=== PATIENT | male | born 1980 | race Two or more races ===

== ENCOUNTER 2023-11-30 12:16 | Inpatient (IN) | payer BC ==
[2023-11-30 12:43] VITALS: BMI 34.1
[2023-11-30] MEDS ORDERED: NALOXONE (NARCAN) HCL 4 MG/0.1 ML SPRAY NS PRN (15:44)
[2023-11-30] MEDS ORDERED: DICYCLOMINE HCL 10 MG CAPSULE PO PRN (15:44)
[2023-11-30] MEDS ORDERED: MAG HYDROX/AL HYDROX/SIMETH 30 ML UNIT-DOSE CUP PO PRN (15:44)
[2023-11-30] MEDS ORDERED: ONDANSETRON *ODT* 4 MG TABLET SL PRN (15:44)
[2023-11-30] MEDS ORDERED: BENZONATATE 200 MG CAPSULE PO PRN (15:44)
[2023-11-30] MEDS ORDERED: BENZOCAINE/MENTHOL (CHLORASEPTIC ) LOZENGE MM PRN (15:44)
[2023-11-30] MEDS ORDERED: IBUPROFEN 400 MG TABLET (FP) PO PRN (15:44)
[2023-11-30] MEDS ORDERED: POLYETHYLENE GLYCOL (HEALTHYLAX) 3350 17 GM PACKET PO PRN (15:44)
[2023-11-30] MEDS ORDERED: NALOXONE HCL 0.4 MG/ML VIAL IM PRN (15:44)
[2023-11-30] MEDS ORDERED: guaiFENesin 600 MG TABLET.ER (FP) PO PRN (15:44)
[2023-11-30] MEDS ORDERED: BISMUTH SUBSALICYLATE 524 MG/30 ML PO PRN (15:44)
[2023-11-30] MEDS ORDERED: MAGNESIUM HYDROX 2400MG/30ML ORAL SUSPENSION 30 ML CUP PO PRN (15:44)
[2023-11-30] MEDS ORDERED: hydrOXYzine PAMOATE 25 MG CAPSULE (FP) PO PRN (15:44)
[2023-11-30] MEDS ORDERED: NICOTINE POLACRILEX 2 MG GUM BUC PRN (15:44)
[2023-11-30] MEDS ORDERED: LOPERAMIDE HCL 2 MG CAPSULE PO PRN (15:44)
[2023-11-30] MEDS: ACETAMINOPHEN 325 MG TABLET (FP) PO PRN (21:19)
[2023-11-30] MEDS: THIAMINE 100 MG TABLET PO SCH (22:28)
[2023-11-30] MEDS: MELATONIN 5 MG TABLETS PO SCH (22:28)
[2023-11-30] MEDS: chlordiazePOXIDE HCL 25 MG CAPSULE PO SCH (22:29)
[2023-12-01] MEDS: NICOTINE 21 MG/24 HOURS TOPICAL PATCH TD SCH (10:14)
[2023-12-01] MEDS: PRENATAL VITAMINS W/ FOLIC ACID TABLET (FP) PO SCH (10:14)
[2023-12-01 11:03] LABS: HEMATOCRIT 42.2 % (35.4-49); HEMOGLOBIN 14.1 GM/dL (11.7-16.9); MCH 32.5 pg (25.7-33.7); MCHC 33.5 g/dl (32.0-35.9); MEAN CELL VOLUME 97.1 fl (80-96); MEAN PLT VOLUME 10.3 fl (7.5-11.1); PLATELET COUNT 140 10^3/uL (134-434); RBC 4.34 M/mm3 (4.00-5.60); RDW 12.8 % (11.9-15.9); WHITE BLOOD COUNT 6.3 K/mm3 (4.0-10.0)
[2023-12-01 11:05] LABS: CHLORIDE 107 mmol/L (98-107); POTASSIUM 3.8 mmol/L (3.5-5.1); SODIUM 140 mmol/L (136-145)
[2023-12-01 11:07] LABS: CALCIUM 8.5 mg/dL (8.5-10.1)
[2023-12-01 11:08] LABS: ALBUMIN 3.4 g/dl (3.4-5.0); ANION GAP 9 mmol/L (4-13); BLOOD UREA NITROGEN 13.2 mg/dL (7-18); CO2 24 mmol/L (21-32); GLUCOSE,RANDOM 156 mg/dL (74-106)
[2023-12-01 11:11] LABS: CREATININE 0.9 mg/dL (0.55-1.3); SGOT/AST 30 U/L (15-37); SGPT/ALT 35 U/L (13-61)
[2023-12-01 11:12] LABS: TOT PROT 6.6 g/dl (6.4-8.2)
[2023-12-01 11:14] LABS: ALK PHOS 49 U/L (45-117)
[2023-12-01 11:38] LABS: BILIRUBIN,TOTAL 0.5 mg/dL (0.2-1)
[2023-12-01] MEDS: ACAMPROSATE CALCIUM 333 MG TABLET.DR PO SCH (15:40)
[2023-12-01] MEDS: METHOCARBAMOL 500 MG TABLET PO PRN (22:14)
[2023-12-02] MEDS: IBUPROFEN 600 MG TABLET (FP) PO PRN (02:10)
[2023-12-02] MEDS: chlordiazePOXIDE HCL 25 MG CAPSULE PO PRN (02:11)
[2023-12-02] MEDS: chlordiazePOXIDE HCL 25 MG CAPSULE PO SCH (05:53)
[2023-12-03] MEDS ORDERED: chlordiazePOXIDE HCL 10 MG CAPSULE PO PRN
[2023-12-03] MEDS: chlordiazePOXIDE HCL 10 MG CAPSULE PO SCH (05:34)
[2023-12-03 09:17] VITALS: BP 122/77; PULSE 64; RESP 18; TEMP 97.6
[2023-12-04] MEDS ORDERED: chlordiazePOXIDE HCL 10 MG CAPSULE PO SCH (05:00)
[2023-12-05] MEDS ORDERED: chlordiazePOXIDE HCL 10 MG CAPSULE PO ONE (05:00)
== END 2023-12-03 13:12 | disposition home or self-care (01) | DRG 774 ==
LOC: YASAS 12:16 → Y6N 15:01
PROVIDERS: ADMIT Surgery; ATTEND Surgery
PROC: HZ2ZZZZ Detoxification Services for Substance Abuse Treatment (ICD-10-PCS; principal; 2023-11-30)
DX: F10.230 Alcohol dependence with withdrawal, uncomplicated (principal); F14.20 Cocaine dependence, uncomplicated; F17.210 Nicotine dependence, cigarettes, uncomplicated; F10.282 Alcohol dependence with alcohol-induced sleep disorder; F10.280 Alcohol dependence with alcohol-induced anxiety disorder; F10.24 Alcohol dependence with alcohol-induced mood disorder; F32.A Depression, unspecified; Z59.01 Sheltered homelessness
CPT/HCPCS: 36415; 80053; 80305; 80307; 85027; 86780; 93005; 93010

== ENCOUNTER 2024-08-28 14:25 | Inpatient (IN) | payer OTHER ==
[2024-08-28 15:35] VITALS: BMI 36.1
[2024-08-28] MEDS ORDERED: diazePAM 5 MG TABLET PO PRN (17:01)
[2024-08-28] MEDS ORDERED: NALOXONE (NARCAN) HCL 4 MG/0.1 ML SPRAY NS PRN (17:01)
[2024-08-28] MEDS ORDERED: IBUPROFEN 600 MG TABLET (FP) PO PRN (17:01)
[2024-08-28] MEDS ORDERED: ONDANSETRON *ODT* 4 MG TABLET SL PRN (17:01)
[2024-08-28] MEDS ORDERED: guaiFENesin 600 MG TABLET.ER (FP) PO PRN (17:01)
[2024-08-28] MEDS ORDERED: BENZOCAINE/MENTHOL (CHLORASEPTIC ) LOZENGE MM PRN (17:01)
[2024-08-28] MEDS ORDERED: IBUPROFEN 400 MG TABLET (FP) PO PRN (17:01)
[2024-08-28] MEDS ORDERED: DICYCLOMINE HCL 10 MG CAPSULE PO PRN (17:01)
[2024-08-28] MEDS ORDERED: LOPERAMIDE HCL 2 MG CAPSULE PO PRN (17:01)
[2024-08-28] MEDS ORDERED: BENZONATATE 200 MG CAPSULE PO PRN (17:01)
[2024-08-28] MEDS ORDERED: BISMUTH SUBSALICYLATE 524 MG/30 ML PO PRN (17:01)
[2024-08-28] MEDS ORDERED: MAG HYDROX/AL HYDROX/SIMETH 30 ML UNIT-DOSE CUP PO PRN (17:01)
[2024-08-28] MEDS ORDERED: ACETAMINOPHEN 325 MG TABLET (FP) PO PRN (17:01)
[2024-08-28] MEDS ORDERED: MAGNESIUM HYDROX 2400MG/30ML ORAL SUSPENSION 30 ML CUP PO PRN (17:01)
[2024-08-28] MEDS ORDERED: POLYETHYLENE GLYCOL (HEALTHYLAX) 3350 17 GM PACKET PO PRN (17:01)
[2024-08-28] MEDS ORDERED: NICOTINE POLACRILEX 2 MG GUM BUC PRN (17:01)
[2024-08-28] MEDS: METHOCARBAMOL 500 MG TABLET PO PRN (20:08)
[2024-08-28] MEDS: hydrOXYzine PAMOATE 25 MG CAPSULE (FP) PO PRN (20:08)
[2024-08-28] MEDS: MELATONIN 5 MG TABLETS PO SCH (22:13)
[2024-08-28] MEDS: THIAMINE 100 MG TABLET PO SCH (22:14)
[2024-08-28] MEDS: diazePAM 5 MG TABLET PO SCH (22:15)
[2024-08-29 08:15] LABS: CHLORIDE 107 mmol/L (98-107); POTASSIUM 4.1 mmol/L (3.5-5.1); SODIUM 139 mmol/L (136-145)
[2024-08-29 08:18] LABS: HEMATOCRIT 44.4 % (40.1-51.0); HEMOGLOBIN 14.6 g/dL (13.7-17.5); MCHC 32.9 g/dl (32.3-36.5); MEAN CELL VOLUME 95.1 fl (79.0-92.2); MEAN PLT VOLUME 11.9 fl (9.4-12.4); PLATELET COUNT 138 x10^3/uL (163-337); RDW 14.1 % (12.1-15.9)
[2024-08-29 08:20] LABS: ALBUMIN 3.3 g/dl (3.4-5.0); BLOOD UREA NITROGEN 14.9 mg/dL (7-18); GLUCOSE,RANDOM 92 mg/dL (74-106)
[2024-08-29 08:21] LABS: ANION GAP 8 mmol/L (4-13); CALCIUM 8.7 mg/dL (8.5-10.1); CO2 25 mmol/L (21-32)
[2024-08-29 08:23] LABS: CREATININE 0.8 mg/dL (0.55-1.3); SGOT/AST 19 U/L (15-37); SGPT/ALT 27 U/L (13-61)
[2024-08-29 08:24] LABS: BILIRUBIN,TOTAL 0.6 mg/dL (0.2-1)
[2024-08-29 08:25] LABS: TOT PROT 6.6 g/dl (6.4-8.2)
[2024-08-29 08:26] LABS: ALK PHOS 52 U/L (45-117)
[2024-08-29] MEDS: PRENATAL VITAMINS W/ FOLIC ACID TABLET (FP) PO SCH (10:18)
[2024-08-29] MEDS ORDERED: SUVOREXANT 10 MG TABLET PO PRN (22:00)
[2024-08-30] MEDS: diazePAM 5 MG TABLET PO SCH (06:01)
[2024-08-30 06:38] VITALS: RESP 16
[2024-08-30 08:43] VITALS: BP 128/80; PULSE 77; TEMP 98.3
[2024-08-31] MEDS ORDERED: diazePAM 5 MG TABLET PO SCH (06:00)
[2024-09-01] MEDS ORDERED: diazePAM 5 MG TABLET PO ONE (06:00)
== END 2024-08-30 11:35 | disposition home or self-care (01) | DRG 775 ==
LOC: YASAS 14:25 → Y3N 17:12
PROVIDERS: ADMIT Allergy & Immunology; ATTEND Allergy & Immunology
PROC: HZ2ZZZZ Detoxification Services for Substance Abuse Treatment (ICD-10-PCS; principal; 2024-08-28)
DX: F10.230 Alcohol dependence with withdrawal, uncomplicated (principal); F17.210 Nicotine dependence, cigarettes, uncomplicated; F32.A Depression, unspecified; Z59.02 Unsheltered homelessness
CPT/HCPCS: 36415; 80053; 80305; 80307; 85027; 86780; 93005; 93010